=== PATIENT | male | born 1990 | race Two or more races ===

== ENCOUNTER 2024-01-13 22:55 | Emergency (ER) | payer SELFPAY ==
[~2024-01-13] VITALS: Ht 167.6 cm; Wt 80.6 kg
[2024-01-13 23:42] VITALS: BP 135/98; PULSE 70; RESP 16; TEMP 98.6; O2SAT 98
== END 2024-01-14 03:43 | disposition home or self-care (01) ==
LOC: ER 22:55
DX: T22.111A Burn of first degree of right forearm, initial encounter (principal); X08.8XXA Exposure to other specified smoke, fire and flames, initial encounter; Y93.G3 Activity, cooking and baking; Y92.89 Other specified places as the place of occurrence of the external cause; Y99.8 Other external cause status